=== PATIENT | female | born 1985 | race Caucasian/White ===

== ENCOUNTER 2024-11-13 19:59 | Emergency (ER) | payer SELFPAY ==
[2024-11-13 20:07] VITALS: BP 139/82; PULSE 48; O2SAT 98
[2024-11-13 20:16] VITALS: BP 128/79; PULSE 43; RESP 14; TEMP 36.6; O2SAT 99; BMI 25.5
--- NOTE | 2024-11-13 20:19 | ECG_ITS ---
Test Reason : bradycardia Blood Pressure : */* mmHG Vent. Rate : 48 BPM Atrial Rate : 48 BPM P-R Int : 116 ms QRS Dur : 90 ms QT Int : 454 ms P-R-T Axes : 36 51 48 degrees QTcB Int : 405 ms Sinus bradycardia Otherwise normal ECG No previous ECGs available Referred By: Generic ED Physician Electronically Signed By: HOOD BUTTS
[2024-11-13 22:06] VITALS: BP 132/81; PULSE 48; RESP 13; TEMP 36.6; O2SAT 98
--- NOTE | 2024-11-13 23:31 | ED_ITS ---
HPI - General Adult General Chief complaint: Overdose Stated complaint: OD, [id number] given Time Seen by Provider: 11/13/24 22:56 Source: patient, RN notes reviewed and old records reviewed Mode of arrival: EMS Limitations: no limitations History of Present Illness ED Provider: Cole HPI narrative: 39-year-old female presents for evaluation of an opiate overdose. The patient was going to [employer] bathroom and was reportedly using recreational heroin. She reports that she injected heroin with the attempted getting high. She had no intention of harming herself. Denies any depression or suicidal ideation She was given Narcan by a bystander as she was reportedly unresponsive. She reports that she feels nauseous but otherwise has no complaints Denies any fevers or chills Related Data Allergies Allergy/AdvReac Type Severity Reaction Status Date / Time No Known Allergies Allergy Verified 11/13/24 20:19 Review of Systems 2 Constitutional: Constitutional: Denies body ache(s), Denies chills and Denies fever(s) Eyes: Eyes: Denies blurry vision ENT: Denies vertigo and Denies dizziness Cardiovascular: Cardiovascular: Denies chest pain and Denies dyspnea on exertion Respiratory: Respiratory: Denies cough and Denies dyspnea on exertion Gastrointestinal: Gastrointestinal: Denies abdominal pain, Reports nausea and Reports vomiting Musculoskeletal: Musculoskeletal: Denies back pain Integumentary/Breasts: Skin/Breast: Reports wounds Neurologic: Denies vertigo and Denies dizziness Psychiatric: Psychiatric: Denies anxiety PMFSH Social History Social History Do you have a plan to hurt others: No Plan Physical Exam ED Vital Signs: Vital Signs - 24 hr 11/13/24 20:16 11/13/24 22:06 11/14/24 02:10 Temperature 98 F 97.8 F 98.2 F Pulse Rate 43 L 48 L 58 Respiratory Rate 14 13 14 Blood Pressure 128/79 132/81 102/59 L Pulse Oximetry 99 98 98 Oxygen Delivery Method Room Air Room Air Room Air BMI result Body Mass Index 25.5 Const General: healthy appearing, comfortable, no acute distress, alert and awake Nutritional Appearance: well nourished Orientation/consciousness: patient oriented x3 HENMT Head: Yes normocephalic and Yes atraumatic Eyes Eyelids: Yes eyelids normal Conjunctivae: conjunctivae normal Sclerae: sclerae normal Corneas: corneas normal Pupils: Equal, round and reactive pupils present EOM: EOMs intact bilaterally Neck Neck: Yes full ROM Resp Effort & Inspection: normal respiratory effort, able to speak in complete sentences and not labored Cardio Rhythm: regular rhythm GI Inspection: No distended Palpation (GI): Soft to palpation, not firm, nontender, no guarding and not rigid Skin Other: Patient has a large, chronic appearing wound to the right lower extremity. There is a significant amount of granulomatous tissue, no significant beefy red erythema, no active drainage. There is some dried blood around the area. No fluctuance General skin exam: elasticity normal Neuro General: patient oriented x3 Cranial nerves: Yes Equal, round and reactive pupils present and Yes Bilaterally intact EOM present Cognition (Neuro): normal cognition Extrem Other: Moving all extremities well without any obvious deformities Course Reevaluation(s) Reevaluation #1: Patient remains awake, alert and oriented. She is no longer nauseous after receiving Zofran. Plan to observe Time: 23:58 Reevaluation #2: 1:55 AM 11/14/2024 (Vik AGARWAL): Patient is signed out to this provider at shift change. In summary the patient is a 39-year-old female presenting to the ED via EMS for evaluation after she was found unresponsive in a local restaurant bathroom. The patient was given Narcan by a bystander with resumption of consciousness. The patient admitted to heroin use, reports use was recreational, denies any suicidal or homicidal ideation. Patient was offered rehab services and declined. Patient has been calm and cooperative throughout ED course, we will continue to monitor through the overnight hours and discharge in the morning with take-home Narcan per protocol. Medications Administered Discontinued Medications Generic Name Dose Route Start Last Admin Trade Name Juanitoq PRN Reason Stop Dose Admin Ondansetron HCl 4 mg 11/13/24 23:03 11/13/24 23:07 Ondansetron Odt 4 Mg Tab.Cyndiedis TRANSLINGU 11/13/24 23:04 4 mg ONCE ONE Administration Medical Decision Making Medical Decision Making MDM Narrative: 39-year-old female presents for evaluation of a suspected opiate overdose. The patient does admit to using opioid tonight and attempt to get high, denies any SI or HI. She is not interested in detox. She is observed for several hours without any findings. She was given Zofran for nausea. Plan for observation until clinically sober Differential Diagnosis Differential Diagnoses: The differential diagnosis associated with the presentation includes Substance abuse Opiate overdose Overdose Narcotic abuse Discharge Plan Discharge Clinical Impression: Opiate overdose Qualifiers: Encounter type: initial encounter Injury intent: accidental or unintentional Q ualified Code(s): T40.601A - Poisoning by unspecified narcotics, accidental (unintentional), initial encounter Patient Disposition: Home, Self-Care Instructions: Opioid Use Disorder (ED) Additional Instructions: Thank you for choosing [facility]'s Emergency Department for your care today. At this time there is no evidence of an acute process requiring admission to the hospital or continued ED observation, and it is safe to discharge you home. You were seen in the emergency department today for evaluation of a suspected opiate overdose. Please do not use heroin or other narcotics as they are generally not good for your health and can put you at risk for respiratory arrest, anoxic brain injury, severely decreased quality of life, and an otherwise avoidable untimely . You were offered a substance abuse consultation during your visit today, to help you stop using recreational drugs. You declined this offer. Please make use of all available personal and community-based resources to attempt to become sober from recreational drugs. Please stay well hydrated and get plenty of rest. Please follow up with your primary care physician for re-evaluation, additional management of your symptoms, and continued preventative care. If you do not have a primary care physician, please call the [facility] at [phone] to establish a new primary care physician. While waiting to establish your new primary care physician, you can call our [facility] at [phone] for non-emergency needs. Please return to the emergency department if you develop a severe or sudden change in your symptoms, a fever over 100.4 that does not improve with Tylenol or Ibuprofen, recurrent vomiting, or any other new or worsening symptoms or concerns. You may also return to the emergency department if you change your mind regarding a substance abuse consultation.
[2024-11-14 02:10] VITALS: BP 102/59; PULSE 58; RESP 14; TEMP 36.8; O2SAT 98
[2024-11-14 05:33] VITALS: BP 106/60; PULSE 64; RESP 16; TEMP 36.8; O2SAT 98
[2024-11-14] MEDS: Naloxone HCl Nasal TAKE HOME 4 MG SPRAY 8 MG NOSTRILALT (05:47)
[2024-11-14 05:49] VITALS: BP 106/60; PULSE 64; RESP 16; TEMP 36.8; O2SAT 98
== END 2024-11-14 05:51 | disposition home or self-care (01) ==
PROVIDERS: Emergency Provider Student in an Organized Health Care Education/Training Program
DX: T40.1X1A Poisoning by heroin, accidental (unintentional), initial encounter (principal); R11.0 Nausea; Y92.511 Restaurant or cafe as the place of occurrence of the external cause; R00.1 Bradycardia, unspecified; Z71.51 Drug abuse counseling and surveillance of drug abuser
CPT/HCPCS: 93005; 99284; 99285

== ENCOUNTER → 2024-11-13 20:19 | Outpatient (BNV) | payer SELFPAY | PROVIDERS: Emergency Provider Student in an Organized Health Care Education/Training Program; Visit Provider Internal Medicine | DX: R00.1 Bradycardia, unspecified (principal) | CPT/HCPCS: 93010 ==